=== PATIENT | female | born 1965 | race African-American/Black ===

== ENCOUNTER 2019-09-04 17:18 | Emergency (ER) | payer OTHER ==
[~2019-09-04] VITALS: Ht 167.6 cm; Wt 91.2 kg
[2019-09-04] MEDS ORDERED: IBUPROFEN 800800 M1 PO (18:53)
[2019-09-04 19:16] VITALS: BP 173/92
== END 2019-09-04 19:17 | disposition home or self-care (01) ==
LOC: ER 17:18
DX: S20.211A Contusion of right front wall of thorax, initial encounter (principal); E11.9 Type 2 diabetes mellitus without complications; Z88.8 Allergy status to other drugs, medicaments and biological substances; Y04.8XXA Assault by other bodily force, initial encounter; Y92.128 Other place in nursing home as the place of occurrence of the external cause; Y93.89 Activity, other specified; Y99.0 Civilian activity done for income or pay